=== PATIENT | female | born 1950 | race Caucasian/White ===

== ENCOUNTER 2023-04-12 10:42 | Inpatient (IN) | payer MEDICARE, BC ==
[~2023-04-12] VITALS: Ht 165.1 cm; Wt 72.7 kg
[2023-04-12 11:10] LABS: BASOPHILS % (AUTO) 0.7 % (0-1); EOSINOPHILS # (AUTO) 0.2 X10'3 (0-0.9); HEMATOCRIT 34.6 % (35.0-45.0); HEMOGLOBIN 11.4 g/dl (12.0-16.0); LYMPHOCYTES # (AUTO) 2.1 X10'3 (1.1-4.8); LYMPHOCYTES % (AUTO) 34.7 % (21-51); MEAN CORPUSCULAR HEMOGLOBIN 32.4 PG (27.0-31.0); MEAN CORPUSCULAR HGB CONC 32.9 g/dL (33.0-36.5); MEAN CORPUSCULAR VOLUME 98.7 FL (78-98); MEAN PLATELET VOLUME 6.5 FL (7.4-10.4); MONOCYTES # (AUTO) 0.8 X10'3 (0-0.9); MONOCYTES % (AUTO) 13.5 % (2-12); NEUTROPHILS # (AUTO) 2.8 X10'3 (1.8-7.7); NEUTROPHILS % (AUTO) 47.1 % (42-75); PLATELET COUNT 445 X10'3 (140-440); RED CELL DISTRIBUTION WIDTH 12.8 % (11.5-14.5)
[2023-04-12 11:29] LABS: ALANINE AMINOTRANSFERASE 18 U/L (12-78); ALBUMIN 3.5 G/DL (3.4-5.0); ALKALINE PHOSPHATASE 62 IU/L (46-116); ANION GAP 10 (8-16); ASPARTATE AMINO TRANSFERASE 18 U/L (10-37); BILIRUBIN,TOTAL 0.3 MG/DL (0.1-1.0); BLOOD UREA NITROGEN 25 MG/DL (7-18); BUN/CREATININE RATIO 28.4 (10.0-20.0); CALCIUM 9.4 MG/DL (8.5-10.1); CHLORIDE 106 MMOL/L (99-107); CREATININE 0.88 MG/DL (0.40-0.90); GLUCOSE 101 MG/DL (70-104); POTASSIUM 3.8 MMOL/L (3.5-5.1); SODIUM 142 MMOL/L (135-145); TOTAL CARBON DIOXIDE 25.6 MMOL/L (24-32); TOTAL PROTEIN 6.9 G/DL (6.4-8.2); eCRCL 51 ML/MIN; eGFR 63 ML/MIN
[2023-04-12 11:38] LABS: PRO BRAIN NATRIURETIC PEPTIDE 290 PG/ML (0-125)
[2023-04-12] MEDS: normal saline 1000ML IV soln IVB ONE (12:14)
[2023-04-12] MEDS ORDERED: potassium Cl 20 mEq SR tablet PO PRN ×2 (13:20)
[2023-04-12] MEDS ORDERED: ondansetron/PF 4mg/2ml inj IV PRN (13:20)
[2023-04-12] MEDS ORDERED: magnesium 2GM in 50ml NS 50 ML IV PRN (13:20)
[2023-04-12] MEDS ORDERED: magnesium 4gm in 100ml NS 100 ML IV PRN (13:20)
[2023-04-12] MEDS ORDERED: acetaminophen 325mg tablet PO PRN (13:20)
[2023-04-12] MEDS ORDERED: potassium Cl 40MEQ/1/2NS 520ml 520 ML IV PRN (13:20)
[2023-04-12] MEDS ORDERED: magnesium Cl slow-release 64mg tablet PO PRN (13:20)
[2023-04-12 14:01] LABS: MAGNESIUM 1.8 MG/DL (1.5-2.4); POTASSIUM 3.9 MMOL/L (3.5-5.1)
[2023-04-12] MEDS: K and/or MAG REPLACEMENT MC SCH (18:48)
[2023-04-12] MEDS: HYDROcodone/acetaminophen 10/325mg tab PO PRN (20:22)
[2023-04-12] MEDS: LIDOcaine 5% patch TP ONE (20:23)
[2023-04-12 22:44] VITALS: BP 142/70; PULSE 72; RESP 14; O2SAT 96
[2023-04-12 23:00] VITALS: RESP 16; O2SAT 96
[2023-04-13 02:00] VITALS: BP 147/76; PULSE 93; RESP 16; TEMP 97; O2SAT 93
[2023-04-13 06:00] VITALS: BP 144/78; PULSE 96; RESP 12; TEMP 97.7; O2SAT 98
[2023-04-13 06:25] LABS: BASOPHILS % (AUTO) 0.7 % (0-1); EOSINOPHILS # (AUTO) 0.2 X10'3 (0-0.9); EOSINOPHILS % (AUTO) 2.6 % (0-6); HEMATOCRIT 33.1 % (35.0-45.0); HEMOGLOBIN 11.2 g/dl (12.0-16.0); LYMPHOCYTES # (AUTO) 1.3 X10'3 (1.1-4.8); LYMPHOCYTES % (AUTO) 21.5 % (21-51); MEAN CORPUSCULAR HEMOGLOBIN 33.1 PG (27.0-31.0); MEAN CORPUSCULAR HGB CONC 33.9 g/dL (33.0-36.5); MEAN CORPUSCULAR VOLUME 97.6 FL (78-98); MEAN PLATELET VOLUME 7.2 FL (7.4-10.4); MONOCYTES # (AUTO) 0.7 X10'3 (0-0.9); MONOCYTES % (AUTO) 11.7 % (2-12); NEUTROPHILS % (AUTO) 63.5 % (42-75); PLATELET COUNT 408 X10'3 (140-440); RED BLOOD COUNT 3.39 X10'6 (4.20-5.60); RED CELL DISTRIBUTION WIDTH 12.7 % (11.5-14.5); WHITE BLOOD COUNT 6.3 X10'3 (4.5-11.0)
[2023-04-13 06:29] LABS: ALBUMIN 3.3 G/DL (3.4-5.0); ANION GAP 6 (8-16); BLOOD UREA NITROGEN 18 MG/DL (7-18); BUN/CREATININE RATIO 28.1 (10.0-20.0); CALCIUM 9.4 MG/DL (8.5-10.1); CHLORIDE 107 MMOL/L (99-107); CREATININE 0.64 MG/DL (0.40-0.90); GLUCOSE 86 MG/DL (70-104); MAGNESIUM 1.8 MG/DL (1.5-2.4); POTASSIUM 3.9 MMOL/L (3.5-5.1); SODIUM 139 MMOL/L (135-145); TOTAL CARBON DIOXIDE 26.2 MMOL/L (24-32); eCRCL 70 ML/MIN; eGFR > 90 ML/MIN
[2023-04-13 11:24] VITALS: BP 142/78; PULSE 92; RESP 14; TEMP 97.8; O2SAT 96
[2023-04-13 15:20] VITALS: BP 138/81; PULSE 90; RESP 18; TEMP 97.7; O2SAT 100
== END 2023-04-13 17:25 | disposition home or self-care (01) | DRG 281 ==
LOC: ER 10:43 → ED HOLD 13:24 → PCU 3S 22:30
PROVIDERS: ADMIT Internal Medicine; ATTEND Internal Medicine
PROC: 4B02XSZ Measurement of Cardiac Pacemaker, External Approach (ICD-10-PCS; principal; 2023-04-12)
DX: T82.111A Breakdown (mechanical) of cardiac pulse generator (battery), initial encounter (principal); I21.A1 Myocardial infarction type 2; I42.8 Other cardiomyopathies; I50.22 Chronic systolic (congestive) heart failure; I11.0 Hypertensive heart disease with heart failure; Y83.8 Other surgical procedures as the cause of abnormal reaction of the patient, or of later complication, without mention of misadventure at the time of the procedure; E03.9 Hypothyroidism, unspecified; E78.5 Hyperlipidemia, unspecified; E11.9 Type 2 diabetes mellitus without complications; I48.0 Paroxysmal atrial fibrillation; Z96.659 Presence of unspecified artificial knee joint; J45.909 Unspecified asthma, uncomplicated; Y92.89 Other specified places as the place of occurrence of the external cause; Z79.899 Other long term (current) drug therapy; Z79.01 Long term (current) use of anticoagulants
CPT/HCPCS: 36415; 71045; 80048; 80053; 83735; 83880; 84132; 84484; 85025; 87081; 93005; 99285; G0378; J7030

== ENCOUNTER 2023-06-14 06:39 | Day surgery (SDC) | payer MEDICARE, BC ==
[2023-06-14] VITALS (8 sets, daily range): BP systolic 109–138; BP diastolic 52–72; PULSE 85–94; RESP 14–18; TEMP 97.9; O2SAT 92–97
[~2023-06-14] VITALS: Ht 165.1 cm; Wt 70.4 kg
[2023-06-14] MEDS ORDERED: cefazolin 2gm/D5W 100mL 100 ML IV ONE (06:55)
[2023-06-14 07:35] LABS: BASOPHILS # (AUTO) 0.1 X10'3 (0-0.2); BASOPHILS % (AUTO) 0.7 % (0-1); EOSINOPHILS # (AUTO) 0.2 X10'3 (0-0.9); EOSINOPHILS % (AUTO) 2.5 % (0-6); HEMATOCRIT 39.1 % (35.0-45.0); HEMOGLOBIN 13.1 g/dl (12.0-16.0); LYMPHOCYTES # (AUTO) 1.4 X10'3 (1.1-4.8); LYMPHOCYTES % (AUTO) 15.8 % (21-51); MEAN CORPUSCULAR HEMOGLOBIN 32.9 PG (27.0-31.0); MEAN CORPUSCULAR HGB CONC 33.4 g/dL (33.0-36.5); MEAN CORPUSCULAR VOLUME 98.6 FL (78-98); MEAN PLATELET VOLUME 6.4 FL (7.4-10.4); MONOCYTES # (AUTO) 0.9 X10'3 (0-0.9); MONOCYTES % (AUTO) 9.8 % (2-12); NEUTROPHILS # (AUTO) 6.5 X10'3 (1.8-7.7); NEUTROPHILS % (AUTO) 71.2 % (42-75); PLATELET COUNT 467 X10'3 (140-440); RED BLOOD COUNT 3.97 X10'6 (4.20-5.60); RED CELL DISTRIBUTION WIDTH 13.5 % (11.5-14.5); WHITE BLOOD COUNT 9.2 X10'3 (4.5-11.0)
[2023-06-14 07:40] LABS: ANION GAP 15 (8-16); BLOOD UREA NITROGEN 21 MG/DL (7-18); BUN/CREATININE RATIO 21.2 (10.0-20.0); CALCIUM 9.5 MG/DL (8.5-10.1); CHLORIDE 102 MMOL/L (99-107); CREATININE 0.99 MG/DL (0.40-0.90); GLUCOSE 93 MG/DL (70-104); MAGNESIUM 1.9 MG/DL (1.5-2.4); POTASSIUM 3.6 MMOL/L (3.5-5.1); SODIUM 140 MMOL/L (135-145); TOTAL CARBON DIOXIDE 22.9 MMOL/L (24-32); eCRCL 46 ML/MIN; eGFR 55 ML/MIN
[2023-06-14 07:42] LABS: PROTHROMBIN TIME 9.6 SECONDS (9.0-12.0)
[2023-06-14] MEDS ORDERED: CITA40TA17 PO (07:53)
[2023-06-14] MEDS ORDERED: CARV-50 PO (07:53)
[2023-06-14] MEDS ORDERED: HYDR-3973 PO (07:53)
[2023-06-14] MEDS ORDERED: LIDO700A47 TOP (07:53)
[2023-06-14] MEDS ORDERED: SPIR25TA5 PO (07:53)
[2023-06-14] MEDS ORDERED: DEXT20TA6 PO (07:53)
[2023-06-14] MEDS ORDERED: LOSA25TA41 PO (07:53)
[2023-06-14] MEDS ORDERED: LEVO100T9 PO (07:53)
[2023-06-14] MEDS ORDERED: BUPR-564 PO (07:53)
[2023-06-14] MEDS ORDERED: RIVA15TA PO (07:53)
[2023-06-14 07:55] LABS: INR 0.9 INR
[2023-06-14] MEDS: vancomycin 1,500 MG in NS 300ml IV soln IV ONE (08:01)
[2023-06-14] MEDS ORDERED: FERR-121 PO (08:08)
[2023-06-14] MEDS ORDERED: VITA-288 PO (08:08)
[2023-06-14] MEDS ORDERED: VITC500T PO (08:09)
[2023-06-14] MEDS ORDERED: POTA8TAB69 PO (08:11)
[2023-06-14] MEDS ORDERED: midazolam 1 mg/ML 2ml injection ONE ×3 (08:11→10:08)
[2023-06-14] MEDS ORDERED: LIDOcaine 1% W/epiNEPHrine 1:100,000 20ml vial ONE (08:11)
[2023-06-14] MEDS ORDERED: iohexol 350 MG/ML 50ML vial IV ONE (08:11)
[2023-06-14] MEDS ORDERED: fentaNYL/PF 50MCG/1 ML 2ML syringe ONE ×2 (08:11→10:08)
[2023-06-14] MEDS ORDERED: vancomycin 1,000mg inj ONE (08:12)
[2023-06-14] MEDS ORDERED: LIDOCAINE 2%/EPI 1:100,000 inj. Multi-dose 20 ML VIAL ONE (08:12)
[2023-06-14] MEDS ORDERED: TESTERONE (08:13)
[2023-06-14] MEDS ORDERED: proCHLORperazine 10 MG/2 ml inj ONE (09:49)
[2023-06-14] MEDS ORDERED: normal saline 1000ml 1,000 ML IV SCH (11:35)
== END 2023-06-14 14:15 | disposition home or self-care (01) ==
LOC: SSTAY O 06:39
PROVIDERS: ATTEND Internal Medicine Cardiovascular Disease
DX: Z45.02 Encounter for adjustment and management of automatic implantable cardiac defibrillator (principal); I10 Essential (primary) hypertension; E11.9 Type 2 diabetes mellitus without complications; E03.9 Hypothyroidism, unspecified; E78.5 Hyperlipidemia, unspecified; I48.0 Paroxysmal atrial fibrillation; J45.909 Unspecified asthma, uncomplicated; I42.0 Dilated cardiomyopathy; Z79.890 Hormone replacement therapy; Z79.01 Long term (current) use of anticoagulants; Z79.899 Other long term (current) drug therapy; Z96.653 Presence of artificial knee joint, bilateral; Z98.890 Other specified postprocedural states
CPT/HCPCS: 33263; 36415; 71045; 80048; 83735; 85025; 85610; 93005; 99152; 99153; C1721; C1896; J0780; J2250; J3010; J3370; J3490; J7030; Q9967; 33216; 33228; A4565; C1722; C1769; C1898